=== PATIENT | male | born 1950 | race Caucasian/White ===

== ENCOUNTER 2016-08-14 09:21 | Day surgery (SDC) | payer BC ==
[~2016-08-14] VITALS: Ht 182.9 cm; Wt 86.2 kg
[~2016-08-14 09:21] MED LIST: ASPI-231 PO; ATOR40TA52 PO; GLIP-115 PO; LISI-706 PO; METF-371 PO; METO25TA62 PO; NIAC1TAB5 PO; PANT40TA2 PO; PRAS10TA6 PO; RAMI10CA18 OR; SITA100T7 PO
[2016-08-14] MEDS ORDERED: ceFAZolin 1GM/50ML D5W 50 ML IV ONE (10:24)
[2016-08-14] MEDS ORDERED: MIDAZOLAM HCL 1MG/1ML-2 ML VIAL ONE (10:56)
[2016-08-14] MEDS ORDERED: fentaNYL CITRATE 100 MCG/2 ML VL ONE (10:56)
[2016-08-14] MEDS ORDERED: PROPOFOL 10 MG/ML 20 ML IV ONE (11:03)
[2016-08-14] MEDS ORDERED: DEXAMETHASONE SOD PHOS 10MG/1ML VIAL INJ ONE (11:03)
[2016-08-14] MEDS ORDERED: PHENYLEPHRINE HCL 10 MG/ML VL IV ONE (11:52)
[2016-08-14] MEDS ORDERED: ROCURONIUM 10MG/ML 10ML VIAL IV ONE ×2 (11:52)
[2016-08-14] MEDS ORDERED: SUCCINYLCHOLINE CHLORIDE 20 MG/ML 10ML VIAL IV ONE (11:52)
[2016-08-14] MEDS ORDERED: NEOSTIGMINE 1 MG/ML INJ (10mg/10ML VIAL) IV ONE (11:52)
[2016-08-14] MEDS ORDERED: hydrALAZINE HCL 20 MG/ML VL IV PRN (12:30)
[2016-08-14] MEDS ORDERED: HYDROmorphone HCL 2 MG/ML VL IV PRN (12:30)
[2016-08-14] MEDS ORDERED: ePHEDrine SULFATE 50 MG/ML AMP IV PRN (12:30)
[2016-08-14] MEDS ORDERED: MIDAZOLAM HCL 1MG/1ML-2 ML VIAL IV PRN (12:30)
[2016-08-14] MEDS ORDERED: KETOROLAC TROMETH 30 MG/ML 1ML VIAL IV ONE (12:30)
[2016-08-14] MEDS ORDERED: ONDANSETRON HCL 4 MG/2 ML VIAL IV ONE (12:30)
[2016-08-14] MEDS ORDERED: MORPHINE SULF INJ 2 MG/ML SYRINGE 1ML IV PRN (12:30)
[2016-08-14] MEDS ORDERED: LABETALOL HCL 5 MG/ML 4ML SYRINGE IV PRN (12:30)
[2016-08-14 14:54] VITALS: BP 123/74
== END 2016-08-14 15:03 | disposition home or self-care (01) ==
LOC: SUR 09:21
PROVIDERS: ATTEND Urology
DX: C61 Malignant neoplasm of prostate (principal); E11.9 Type 2 diabetes mellitus without complications; F17.200 Nicotine dependence, unspecified, uncomplicated; Z90.49 Acquired absence of other specified parts of digestive tract
CPT/HCPCS: 55873; 82962; C2618; J0330; J0690; J1100; J2250; J2370; J2704; J3010

== ENCOUNTER 2018-09-23 15:46 | Inpatient (IN) | payer MEDICARE, OTHER, BC | END 2018-09-25 12:34 | disposition E | LOC: ER 15:46 → TELE 15:47 | PROC: 0W993ZZ Drainage of Right Pleural Cavity, Percutaneous Approach (ICD-10-PCS; principal; ~2018-09-23) | DX: J96.20 Acute and chronic respiratory failure, unspecified whether with hypoxia or hypercapnia (principal); N17.9 Acute kidney failure, unspecified; I82.409 Acute embolism and thrombosis of unspecified deep veins of unspecified lower extremity; C34.91 Malignant neoplasm of unspecified part of right bronchus or lung; C78.7 Secondary malignant neoplasm of liver and intrahepatic bile duct; C79.31 Secondary malignant neoplasm of brain; J90 Pleural effusion, not elsewhere classified; I95.9 Hypotension, unspecified; R73.9 Hyperglycemia, unspecified; E87.5 Hyperkalemia; E11.9 Type 2 diabetes mellitus without complications; I10 Essential (primary) hypertension; J44.9 Chronic obstructive pulmonary disease, unspecified ==